=== PATIENT | female | born 1985 | race Caucasian/White ===

== ENCOUNTER 2019-08-09 10:39 | Emergency (ER) | payer OTHER, MEDICAID, SELFPAY ==
[2019-08-09 11:30] VITALS: BP 112/76; PULSE 88; RESP 13; TEMP 36.8; O2SAT 98
--- NOTE | 2019-08-09 12:11 | ED.PSYCH ---
HPI - Psych General Chief Complaint: Psychiatric Symptoms Stated Complaint: bipolar,change in medication,bladder infection Time Seen by Provider: 08/09/19 12:09 Source: patient Mode of arrival: Ambulatory Limitations: no limitations History of Present Illness HPI Narrative: . This is a 33-year-old female comes the emergency department with bipolar history. Patient states she felt like she had a dissociative episode yesterday. She feels like she is better now, she was in contact or attempted contact with her psychiatrist, several other facilities in order to have potential help as needed and everything was closed because it is better in stay. Patient states she really does need some resource today. She feels safe, she is not suicidal, she is not homicidal, she states that that associated feeling has resolved. She is accompanied by significant other. Patient does have a psychiatrist, they been switching her or medications over but she has been on the new 1 for about 2 weeks. This is based on some genetic testing which they found would likely be more appropriate. She has also had a little bit of frequency urgency and dysuria. Related Data Previous Rx's Medication Instructions Recorded cephalexin [Keflex] 500 mg PO BID #10 cap 08/09/19 Review of Systems Review of Systems ROS Unobtainable: All systems reviewed & are unremarkable except as noted in HPI and below Psychiatric Psychiatric: Reports as per HPI, Denies auditory hallucinations, Denies hallucinations, Denies homicidal ideation, Denies suicidal ideation and Reports other (felt dissociated.) Patient History Social History Smoking Status: Former smoker Substance Use Type: does not use Exam Narrative Exam Narrative: GENERAL: Alert and oriented x three, well-nourished, well-appearing female in mild distress. HEENT: Head normocephalic, atraumatic, EOMI, pupils reactive, face symmetric, moist mucous membranes NECK: Supple, full range of motion CARDIOVASCULAR: Regular rate and rhythm without murmurs, rubs or gallops. RESPIRATORY: Breath sounds equal bilaterally, no wheezes rales or rhonchi. ABDOMEN: Soft, nontender. Normoactive bowel sounds all 4 quadrants. No guarding or rebound, rigidity, no mass : No CVA tenderness EXTREMITIES: Normal range of motion, no clubbing or edema. Neurovascularly intact NEUROLOGICAL: Cranial nerves II through XII grossly intact. Moving all extremities SKIN: Warm, dry, no petechiae, no rashes or lesions. PSYCH: Patient describes associated episode yesterday. She is no longer having symptoms. No suicidal homicidal ideation. No active hallucinations. She does not feel like she is manic extremely depressed at this time. Initial Vital Signs Initial Vital Signs: Vital Signs Temperature 98.2 F 08/09/19 11:30 Pulse Rate 88 08/09/19 11:30 Respiratory Rate 13 08/09/19 11:30 Blood Pressure 112/76 08/09/19 11:30 Pulse Oximetry 98 08/09/19 11:30 Course Orders Ordered: ED Orders 08/09/19 12:28 Urine Culture Stat Urine Microscopic Stat Vital Signs Vital signs: Vital Signs - 8 hr 08/09/19 11:30 Temperature 98.2 F Pulse Rate 88 Respiratory Rate 13 Blood Pressure 112/76 Pulse Oximetry 98 MDM - Psych Lab Data Labs: Lab Results 08/09/19 Range/Units 12:28 Urine RBC 5-10/hpf H (0-5/HPF) Urine WBC 30-100/hpf H (0-5/HPF) Ur Squamous Epith Cells 5-10 /hpf H (0-5/HPF) Calcium Oxalate Crystal Few H Amorphous Sediment 1+ Urine Bacteria Moderate (10-30) H (None) Urine Mucus 1+ H (Negative) Ur Culture Indicated? Specimen cultured Urine Dip Bedside Urine Glucose Negative Bedside Urine Bilirubin ++ 2 Bedside Urine Ketone - Negative Urine Specific [place] 1.030 Bedside Urine Occult Blood ++ Bedside Urine pH 6.0 Bedside Urine Protein + 30 Bedside Urine Urobilinogen - Negative Bedside Urine Nitrite - Negative Bedside Urine Leukocytes ++ [address] [facility] Narrative Medical decision making narrative: Discussed with patient she is mainly seeking options so if everything is closed on a future date she has an opportunity to be able to contact for help outside of the emergency department if possible. Patient has leuks and some blood on her urinalysis started on Keflex for possible UTI. Patient felt comfortable with the plan with referral for options. She is also aware that she can return at any time to the emergency department, that she can call 911 for transportation if needed. She feels very comfortable with this plan. She does feel safe on her family member accompanying is also comfortable with this plan. Discharge Plan Departure Patient Disposition: Home Clinical Impression: Bipolar disorder Discharge Date/Time: 08/09/19 12:43 Instructions: DI for Bipolar Disorder Activity Restrictions/Additional Instructions: Follow-up with your psychiatrist in the next several days. Continue your home medication as prescribed. Take antibiotics as prescribed. Urine was sent for culture and takes 24-48 hours to result, if it shows resistance you will be contacted to change her medication. If you're feeling suicidal or having suicidal thoughts, contact the suicide hotline. This number is also the number for [facility]. They have a outpatient team that you can contact via phone they will often follow-up with people within the community, via phone or in the office within 24 hours and are an option for intervention same day at times. . You may return to the emergency department at any time, return to the emergency department if you are having suicidal thoughts, homicidal thoughts, recurrent dissociated episodes, if you feel unsafe in any form, or any other new or concerning symptoms. Prescriptions: New cephalexin [Keflex] 500 mg capsule 500 mg PO BID Qty: 10 RF: 0
[2019-08-09 12:56] LABS: RBC Urine 5-10/HPF (0-5/HPF); WBC Urine 30-100/HPF (0-5/HPF)
[2019-08-09 12:57] LABS: Amorphous Sediment Urine 1+; Bacteria Urine Moderate (10-30); Calcium Oxalate Crystals Urine Few; Culture Indicated Urine Specimen Cultured; Mucus Urine 1+ (Negative); Squamous Epithelial Cell Urine 5-10 /HPF (0-5/HPF)
--- NOTE | 2019-08-16 13:39 | PC.NURSE ---
Pt called requesting micro results for urine. States she feels much improved. Discussed results, no further action indicated at this time. Encouraged to f/u w/ her primary care provider or return for any difficulty.
== END 2019-08-09 12:43 | disposition home or self-care (01) ==
PROVIDERS: Emergency Provider Emergency Medicine
DX: F31.9 Bipolar disorder, unspecified (principal); R35.0 Frequency of micturition; R30.0 Dysuria
CPT/HCPCS: 81003; 81015; 87086; 99282

== ENCOUNTER → 2020-02-02 11:23 | Outpatient (CLI) | payer OTHER, MEDICAID, SELFPAY ==
--- NOTE | 2020-02-02 | DI.MRI.S_ITS ---
PROCEDURE: MR KNEE RT WO CON INDICATIONS: EFFUSION, RIGHT KNEE TECHNIQUE: Noncontrast sagittal PD fast spin echo and T2 fast spin echo with fat saturation, sagittal 3-D FLASH with fat saturation; coronal T1 spin echo and PD fast spin echo with fat saturation, and axial PD fast spin echo with fat saturation through the knee. COMPARISON: None. FINDINGS: Image quality: Excellent. Menisci: Medial meniscus intact. Lateral meniscus intact. Cruciate ligaments: Anterior cruciate ligament appears intact. Posterior cruciate ligament appears intact. Medial structures: The medial collateral ligament sprain with adjacent edema and thickened appearance. No definite complete disruption is seen. Semimembranosus tendon appears intact. Visualized portions of the pes anserinus tendons appear normal. No abnormal bursal fluid. Lateral structures: The lateral collateral ligament intact. Biceps femoris tendon appears intact. Popliteus tendon grossly unremarkable. Iliotibial band appears intact. Anterior structures: Quadriceps tendon intact. Medial and lateral patellofemoral ligaments intact. Patellar tendon appears intact. Hoffa's fat pad unremarkable. Bones and cartilage: No discrete fracture line however marrow edema/contusion is seen within the posterolateral femoral condyle Within the medial compartment, no focal cartilage defect Within the lateral compartment, no focal cartilage defect Within the patellofemoral compartment, intrasubstance signal change partial-thickness loss of the cartilage overlying the lateral patellar facet Joint space: No joint effusion. No Gray's cyst. A probable small ganglion cyst seen at the origin of the medial gastrocnemius No specific evidence of intra-articular loose body. IMPRESSION: Marrow contusion involving the posterolateral femoral condyle. Sprain of the medial collateral ligament without complete disruption. Patellofemoral chondromalacia Dictated by: Dimitri Rahman M.D. on 02/02/2020 at 12:56 Approved by: Dimitri Rahman M.D. on 02/02/2020 at 13:03
== END ==
PROVIDERS: Referring Provider Naturopath; Visit Provider Naturopath
DX: M25.461 Effusion, right knee (principal); S83.411A Sprain of medial collateral ligament of right knee, initial encounter; S80.01XA Contusion of right knee, initial encounter; M22.41 Chondromalacia patellae, right knee
CPT/HCPCS: 73721